=== PATIENT | female | born 1985 | race Caucasian/White ===

== ENCOUNTER 2016-05-20 13:27 | Emergency (ER) | payer BC, OTHER ==
[~2016-05-20] VITALS: Ht 154.9 cm; Wt 89.0 kg
[~2016-05-20 13:27] MED LIST: CALC600T5 PO; CIPR500T4 PO; FERR240T9 PO; FOL8 PO; IBUP-1542 PO; NITR-58 PO; PHEN-538 PO; PREN1TAB62 PO
[2016-05-20 13:54] VITALS: Ht 154.9 cm; Wt 89.0 kg
[2016-05-20] MEDS ORDERED: LORAZEPAM 1 MG TAB PO ONE (16:00)
[2016-05-20] MEDS ORDERED: LIDOCAINE/MYLANTA 40 ML BTL PO ONE (17:00)
--- NOTE | 2016-05-20 17:11 | ERA ---
ER Documentation Chief Complaint Date/Time DATE: 05/20/16 TIME: 17:04 Chief Complaint CHEST PAIN AND "PASSED OUT." HX GASTRITIS. HX ANXIETY. HPI Pleasant 30-year-old female presents to emergency department today with reports of panic attack, chest pain, and near syncope and heartburn. Patient reports symptoms happened several hours ago. Patient reports stress, family problems, financial concerns, with sick mother at home. History of anxiety, patient is currently treated by mental health therapist, started on Zoloft 2 months ago for anxiety. Patient sees her therapist 05/24/2016. Patient reports that she no longer is feeling chest pain or palpitations. ECG shows a ventricular rate of 102, sinus tachycardia regular rhythm, no ST changes. Patient denies any cardiovascular history, denies hypertension, hyperlipidemia, CAD, or diabetes. Patient denies family history of coronary artery disease. ADAPT protocol not applied. Cardiac enzymes were not drawn on patient today. ROS All systems reviewed and are negative except as per history of present illness. Medications Home Meds Active Scripts Ranitidine Hcl* (Zantac*) 150 Mg Tablet, 150 MG PO BID Y for EPIGASTRIC PAIN, # 30 TAB Prov:ALYSESEAN 05/20/16 Allergies Allergies: Coded Allergies: No Known Drug Allergy (Unverified Allergy, Unknown, 05/20/16) PMhx/Soc History of Surgery: Yes (4 csections; tubal ligation) Anesthesia Reaction: No Hx Neurological Disorder: No Hx Respiratory Disorders: No Hx Cardiac Disorders: No Hx Psychiatric Problems: No Hx Miscellaneous Medical Probl: Yes (gastritis) Hx Alcohol Use: Yes (social) Hx Substance Use: No Hx Tobacco Use: No Smoking Status: Never smoker Physical Exam Vitals Vital Signs Date Time Temp Pulse Resp B/P Pulse Ox O2 Delivery O2 Flow Rate FiO2 05/20/16 17:20 98.0 78 20 140/85 97 Room Air 05/20/16 13:54 99.1 102 16 140/74 98 Vital signs stable, nursing notes reviewed Physical Exam Const: No acute distress Head: Eyes: Normal Conjunctiva, PERRLA, EOMI ENT: Normal External Ears, Nose and Mouth. Neck: Full range of motion..~ No meningismus. No JVD Resp: Respirations even and unlabored, clear to auscultation bilaterally Cardio: Regular rate and rhythm, no murmurs S1-S2, no S3-S4. No murmur or rub Abd: Abdomen symmetric, nondistended, epigastric tenderness, no tenderness over McBurney's point, negative Mcdonough's sign. Negative CVA tenderness Skin: No petechiae or rashes Back: No midline or flank tenderness Ext: Neur: Awake and alert Psych: Normal Mood and Affect patient is calm, speech is clear and not racing. Judgment is appropriate, behavior is appropriate. Results 24 hrs Current Medications Medications (Trade) Dose Ordered Sig/Martir Route PRN Reason Start Time Stop Time Status Last Admin Dose Admin Lorazepam (Ativan) 1 mg ONCE ONCE PO 05/20/16 16:00 05/20/16 16:54 DC Miscellaneous Medication (Gi Cocktail (2)) 40 ml ONCE ONCE PO 05/20/16 17:00 05/20/16 17:16 DC 05/20/16 17:01 Procedures/MDM Pleasant 30-year-old female presents to emergency department today with reports of panic attack. Patient reports symptoms started after work, patient reports symptoms as lightheadedness, "felt like I was going to faint". Chest tightness , shortness of breath. Patient denies any known trigger causation to current symptoms at work. States stress at home with financial concerns and is sick parent. Patient is followed by mental health, has a psychologist, started Zoloft 2 weeks ago. Discussed using Ativan for anxiety symptoms. Patient reports that she has Ativan at home, did not take it, and would prefer not to take it while in the emergency department today because she is driving. Patient also reports systemic upset, and pain, pain is located in the epigastric area trial of GI cocktail was provided with effective relief of symptoms. A cardiovascular workup was not initiated based on exam findings and history. I feel the patient is stable for discharge at this time and can continue to follow-up with mental health for anxiety symptoms. Follow-up with primary physician for full evaluation of gastritis. I have discussed results, examination findings, the treatment plan with the patient and family present prior to discharge. Strict indications for emergent reevaluation, such as chest pain worsening or changing in quality or presentation. Shortness of breath, palpitations. Side effects of medication were also discussed. All questions were answered. Patient verbalizes understanding and agrees with plan of care. Departure Diagnosis: Primary Impression: Panic attack Additional Impression: History of anxiety disorder Condition: Good Patient Instructions: Anxiety Reaction, Your Body's Response to Anxiety Comments Thank you for for coming to [facility] for your care today. Please ask your nurse or provider if you have questions about your care today and do not leave until all your questions have been answered. Please use any medications given as directed and follow-up with your doctor (or the doctor you were referred to) in the next 2-3 days. If you do not have a primary care doctor you may follow up at the [facility] (listed below). You may also use motrin and tylenol as needed for fever and/or pain unless instructed otherwise by your provider or nurse. Indications for more urgent follow-up have been discussed, but you may return to the Emergency Department at ANY time for any worrisome or worsening symptoms. If you have abdominal pain, please know that no test or exam you received is perfect and you should follow up within 8 hours for continued pain. If you had any imaging studies today, such as an X-Ray or CT Scan, these studies will be reviewed later by a radiologist. You will be called if there are important findings that were not identified today, so make sure the contact information you provided at registration is correct. If you received any narcotic pain control medicine today, such as Vicodin, Morphine or Dilaudid, your coordination and judgment may be affected for a number of hours. Please do not drive or operate heavy machinery, and you may want someone to assist you at home. If you were given a prescription for narcotic medication, be aware that it is very addictive- use sparingly and only if necessary. SEAN CULLEN May 20, 2016 17:11
[2016-05-20] MEDS ORDERED: RANI150T9 PO (17:14)
[2016-05-20 17:20] VITALS: BP 140/85; PULSE 78; RESP 20; TEMP 98
== END 2016-05-20 17:22 | disposition home or self-care (01) ==
LOC: FTE 13:27 → MERGE 13:27 → FTE 17:22
DX: F41.0 Panic disorder [episodic paroxysmal anxiety] (principal); F41.9 Anxiety disorder, unspecified
CPT/HCPCS: 99283; Z7610

== ENCOUNTER 2016-08-07 12:14 | Emergency (ER) | payer BC ==
[~2016-08-07] VITALS: Ht 157.5 cm; Wt 78.0 kg
[~2016-08-07 12:14] MED LIST changes: +RANI150T9 PO
[2016-08-07 12:17] VITALS: Ht 157.5 cm; Wt 78.0 kg
[2016-08-07] MEDS ORDERED: IBUP-1542 PO (14:16)
[2016-08-07] MEDS ORDERED: AMO500 PO (14:16)
--- NOTE | 2016-08-07 14:18 | ERD ---
ER Documentation Chief Complaint Date/Time DATE: 08/07/16 TIME: 14:[address] since yesterday HPI This 31-year-old female presents with sore throat since yesterday. She denies any shortness of breath, measured fevers, vomiting, bowel pain, chest pain. ROS All systems reviewed and are negative except as per history of present illness. Medications Home Meds Active Scripts Amoxicillin* (Amoxicillin*) 500 Mg Cap, 500 MG PO TID for 10 Days, CAP Prov:CORNELIA GUERRERO MD 08/07/16 Ibuprofen* (Motrin*) 600 Mg Tab, 600 MG PO Q6, #15 TAB Prov:CORNELIA GUERRERO MD 08/07/16 Ranitidine Hcl* (Zantac*) 150 Mg Tablet, 150 MG PO BID Y for EPIGASTRIC PAIN, # 30 TAB Prov:ALYSESEAN YOUSSEF 05/20/16 Phenazopyridine Hcl* (Pyridium*) 200 Mg Tab, 200 MG PO TID Y for URINARY PAIN, # 6 TAB Prov:JULI SUN NP 03/02/16 Nitrofurantoin Monohyd Macrocr* (Macrobid*) 100 Mg Capsr, 100 MG PO BID for 7 Days, CAP Prov:JULI SUN NP 03/02/16 Ibuprofen* (Motrin*) 600 Mg Tab, 600 MG PO Q6H Y for PAIN AND OR ELEVATED TEMP, #30 Prov:KOLTON LYNNE 10/13/14 Ciprofloxacin Hcl* (Ciprofloxacin Hcl*) 500 Mg Tablet, 500 MG PO BID for 7 Days , TAB Prov:KOLTON LYNNE 10/13/14 Reported Medications Folic Acid* (Folic Acid*) 0.8 Mg Tablet, 0.8 MG PO DAILY, TAB 11/28/13 Calcium Carbonate (CALCIUM) 600 Mg Tablet, 600 MG PO DAILY 11/28/13 Ferrous Gluconate (Iron) 1 Tab Tablet, 1 TAB PO DAILY 11/28/13 Vit-Iron Fumarate-FA ( Vitamin Tablet) 1 Each Tablet, 1 TAB PO DAILY, TAB 11/24/13 Allergies Allergies: Coded Allergies: No Known Drug Allergy (Unverified Allergy, Unknown, 05/23/16) PMhx/Soc History of Surgery: Yes (4 csections; tubal ligation) Anesthesia Reaction: No Hx Neurological Disorder: No Hx Respiratory Disorders: No Hx Cardiac Disorders: No Hx Psychiatric Problems: No Hx Miscellaneous Medical Probl: Yes (gastritis) Hx Alcohol Use: Yes (social) Hx Substance Use: No Hx Tobacco Use: No Physical Exam Vitals Vital Signs Date Time Temp Pulse Resp B/P Pulse Ox O2 Delivery O2 Flow Rate FiO2 08/07/16 12:17 98.6 89 18 126/80 99 Physical Exam Const: [] Alert, not ill-appearing. Head: Atraumatic Eyes: Normal Conjunctiva ENT: Normal External Ears, Nose and Mouth. Tonsils 3+. Airways patent and uvula midline. There is some erythema. Some slight tender anterior cervical lymphadenitis. Neck: Full range of motion..~ No meningismus. Resp: Clear to auscultation bilaterally Cardio: Regular rate and rhythm, no murmurs Abd: Soft, non tender, non distended. Normal bowel sounds Skin: No petechiae or rashes Back: No midline or flank tenderness Ext: No cyanosis, or edema Neur: Awake and alert Psych: Normal Mood and Affect Results 24 hrs Current Medications Medications (Trade) Dose Ordered Sig/Martir Route PRN Reason Start Time Stop Time Status Last Admin Dose Admin Ibuprofen (Motrin) 600 mg ONCE ONCE PO 08/07/16 14:30 08/07/16 14:31 Prednisone (Prednisone) 40 mg ONCE ONCE PO 08/07/16 14:30 08/07/16 14:31 Procedures/MDM Patient presents with signs of pharyngitis without evidence of obstruction, abscess, rest or distress, hypoxemia. Chandana discharge Departure Diagnosis: Primary Impression: Sore throat Condition: Stable Patient Instructions: Pharyngitis, Strep (Presumed) Additional Instructions: Recheck for new or worsening symptoms or with primary care doctor. CORNELIA GUERRERO MD August 07, 2016 14:18
[2016-08-07] MEDS ORDERED: predniSONE 20 MG TAB PO ONE (14:30)
[2016-08-07] MEDS ORDERED: IBUPROFEN 600 MG TAB PO ONE (14:30)
== END 2016-08-07 14:48 | disposition home or self-care (01) ==
LOC: FTE 12:14
DX: J02.9 Acute pharyngitis, unspecified (principal)
CPT/HCPCS: 99283; J7512; Z7610

== ENCOUNTER 2018-08-18 12:40 | Emergency (ER) | payer BC ==
[~2018-08-18] VITALS: Ht 162.6 cm; Wt 89.8 kg
[~2018-08-18 12:40] MED LIST changes: +AMOX500C2 PO; +RANI150T35 PO; -RANI150T9 PO
[2018-08-18 12:45] VITALS: Ht 162.6 cm; Wt 89.8 kg
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
[2018-08-18] MEDS ORDERED: CIPR500T4 PO (13:20)
[2018-08-18] MEDS ORDERED: LORA1TAB PO (13:20)
[2018-08-18] MEDS ORDERED: FLUC150T PO (13:20)
[2018-08-18] MEDS ORDERED: LORAZEPAM 1 MG TAB PO ONE (13:30)
[2018-08-18] MEDS ORDERED: OMEP40CA6 PO (13:35)
[2018-08-18 14:51] VITALS: BP 155/72; PULSE 77; RESP 18
== END 2018-08-18 14:53 | disposition home or self-care (01) ==
LOC: E/R 12:40
DX: F43.0 Acute stress reaction (principal); N30.00 Acute cystitis without hematuria; R07.9 Chest pain, unspecified
CPT/HCPCS: 80053; 81001; 81025; 82550; 82553; 84484; 85025; 87086; 93005; 99284; Z7610; 81003

== ENCOUNTER 2018-10-25 13:18 | Emergency (ER) | payer BC ==
[~2018-10-25] VITALS: Ht 157.5 cm; Wt 91.0 kg
[~2018-10-25 13:18] MED LIST changes: -AMOX500C2 PO; -FERR240T9 PO; +FLUC150T PO; -FOL8 PO; -IBUP-1542 PO; +LORA1TAB PO; -NITR-58 PO; +OMEP40CA6 PO; -PREN1TAB62 PO; -RANI150T35 PO
[2018-10-25 13:28] VITALS: BP 130/77; PULSE 70; RESP 16; Ht 157.5 cm; Wt 91.0 kg
--- NOTE | 2018-10-25 13:56 | ERD ---
ER Documentation Chief Complaint Chief Complaint dysuria, frequency remains p tx UTI '2 more days left of keflex'. HPI Is a 33-year-old female presents with dysuria. She has a history of frequent urinary tract infections because she states she has a prolapsed uterus. She is currently taking Keflex but she states Keflex does not usually work for her. She would like to have antibiotics switched over to Cipro. No fever. No vomiting. Denies possibility of . ROS All systems reviewed and are negative except as per history of present illness. Medications Home Meds Active Scripts Ciprofloxacin Hcl* (Ciprofloxacin Hcl*) 500 Mg Tablet, 500 MG PO BID for 7 Days, TAB Prov:CHAYA CONWAY PA-C 10/25/18 Ciprofloxacin Hcl* (Ciprofloxacin Hcl*) 500 Mg Tablet, 500 MG PO BID for 7 Days, TAB Prov:PAUL TAYLOR MD 08/18/18 Fluconazole* (Diflucan*) 150 Mg Tablet, 150 MG PO ONCE, #1 TAB Prov:PAUL TAYLOR MD 08/18/18 Lorazepam* (Lorazepam*) 1 Mg Tablet, 1 MG PO Q8H PRN for ANXIETY, #10 TAB Prov:PAUL TAYLOR MD 08/18/18 Reported Medications Omeprazole* (Omeprazole*) 40 Mg Capsule.dr, 40 MG PO DAILY, #30 CAP 08/18/18 Calcium Carbonate (CALCIUM) 600 Mg Tablet, 600 MG PO DAILY 11/28/13 Allergies Allergies: Coded Allergies: No Known Drug Allergy (Unverified Allergy, Unknown, 05/23/16) PMhx/Soc History of Surgery: Yes (4 csections; tubal ligation) Anesthesia Reaction: No Hx Neurological Disorder: No Hx Respiratory Disorders: No Hx Cardiac Disorders: No Hx Psychiatric Problems: No Hx Miscellaneous Medical Probl: Yes (gastritis) Hx Alcohol Use: Yes (social) Hx Substance Use: No Hx Tobacco Use: No FmHx Family History: No diabetes Physical Exam Vitals Vital Signs Date Temp Pulse Resp B/P (MAP) Pulse Ox O2 O2 Flow FiO2 Time Delivery Rate 10/25/18 99.1 70 16 130/77 97 13:28 (94) Physical Exam Const: No acute distress Head: Atraumatic Eyes: Normal Conjunctiva ENT: Normal External Ears, Nose and Mouth. Neck: Full range of motion. No meningismus. Resp: Clear to auscultation bilaterally Cardio: Regular rate and rhythm, no murmurs Abd: Soft, non tender, non distended. Procedures/MDM 33-year-old female presents with dysuria and increased urinary frequency. She is requesting to have the medication change from Keflex to Cipro which I did for her. Patient counseled regarding my diagnostic impression and care plan. Prior to discharge all questions answered. Pt agrees with treatment plan and understands strict return precautions. Pt is instructed to follow up with primary care provider within 24-48 hours. Precautionary instructions provided including instructions to return to the ER if not improving or for any worsening or changing symptoms or concerns. Departure Diagnosis: Primary Impression: Dysuria Condition: Stable Patient Instructions: Dysuria Additional Instructions: Call your primary care doctor TOMORROW for an appointment during the next 1-2 days.See the doctor sooner or return here if your condition worsens before your appointment time. CHAYA CONWAY PA-C Oct 25, 2018 13:56
== END 2018-10-25 14:39 | disposition home or self-care (01) ==
LOC: FTE 13:18
DX: R30.0 Dysuria (principal)
CPT/HCPCS: 81003; 81025; 99283